=== PATIENT | male | born 1955 | race Hispanic/Latino ===

== ENCOUNTER 2019-08-14 08:42 | Day surgery (SDC) | payer OTHER ==
[2019-08-11 11:57] LABS: BASOPHILS % (AUTO) 0.8 % (0.0-5.0); EOSINOPHILS % (AUTO) 11.1 % (0.0-8.0); HEMATOCRIT 41.1 % (42-54); LYMPHOCYTES % (AUTO) 22.6 % (21.0-51.0); MEAN CORPUSCULAR HEMOGLOBIN 29.5 pg (27.0-33.0); MEAN CORPUSCULAR HGB CONC 31.6 g/dL (32.0-36.0); MEAN CORPUSCULAR VOLUME 93.2 fL (79-99); MONOCYTES % (AUTO) 10.2 % (3.0-13.0); NEUTROPHILS % (AUTO) 54.8 % (40.0-77.0); PLATELET COUNT (AUTO) 282 K/uL (130-400); RED BLOOD CELL COUNT(AUTO) 4.41 MIL/uL (4.50-6.20); RED CELL DISTRIBUTION WIDTH 12.3 % (11.0-15.5)
[2019-08-11 12:06] LABS: POTASSIUM 4.2 mmol/L (3.5-5.1)
[2019-08-11 12:12] VITALS: BP 141/82
[~2019-08-14] VITALS: Ht 167.6 cm; Wt 86.2 kg
[2019-08-14] VITALS (25 sets, daily range): BP systolic 117–147; BP diastolic 52–83
[~2019-08-14 08:42] MED LIST: CEFAZOLIN SODIUM 1 GM VIAL IVP SCH; OMEP20TA25 PO
[2019-08-14] MEDS ORDERED: LACTATED RINGERS 1000ML 1,000 ML IV ONE (09:44)
[2019-08-14] MEDS ORDERED: MIDAZOLAM HCL 1 MG/ML 2ML VIAL ONE ×2 (13:42→13:50)
[2019-08-14] MEDS ORDERED: LIDOCAINE PF 2% 5ML ABBOJECT ONE (13:43)
[2019-08-14] MEDS ORDERED: ROCURONIUM 10MG/1ML SYR 10 MG/ML ML ONE (13:43)
[2019-08-14] MEDS ORDERED: PROPOFOL 10 MG/ML 20ML VIAL IV ONE (13:43)
[2019-08-14] MEDS ORDERED: FENTANYL CITRATE PF 50 MCG/1 ML 5ML AMP IV ONE (13:43)
[2019-08-14] MEDS ORDERED: CEFAZOLIN SODIUM 1 GM VIAL ONE (13:54)
[2019-08-14] MEDS ORDERED: EPHEDRINE SULFATE 50 MG/ML AMPULE ONE (14:04)
[2019-08-14] MEDS ORDERED: PHENYLEPHRINE HCL 10 MG/ML 1ML VIAL IV ONE (14:23)
[2019-08-14] MEDS ORDERED: GLYCOPYRROLATE 1 MG/5 ML SYRINGE ONE (14:26)
[2019-08-14] MEDS ORDERED: DEXAMETHASONE SOD PHOSPHATE 10MG/ML 1ML VIAL ONE (14:26)
[2019-08-14] MEDS ORDERED: NEOSTIGMINE 5MG/5ML SYR IV ONE (14:26)
[2019-08-14] MEDS ORDERED: ONDANSETRON HCL 4 MG/2 ML VIAL ONE (14:27)
[2019-08-14] MEDS ORDERED: HYDR-4457 PO (15:45)
[2019-08-14] MEDS ORDERED: CEPH-578 PO (15:45)
[2019-08-14] MEDS ORDERED: MORPHINE SULFATE 2 MG/ML 1ML SYG ONE ×2 (16:02→16:40)
[2019-08-14] MEDS: FENTANYL CITRATE PF 50 MCG/1 ML 2ML VIAL ONE ×2 (16:16→16:19)
[2019-08-14] MEDS ORDERED: KETOROLAC TROMETHAMINE 30MG/ML ONE (17:02)
--- NOTE | 2019-08-14 17:30 | NUR ---
post received pt from PACU, S/p right shoulder open rotator cuff repair, dressing to site dry and intact, arm sling in place ice packs in place. neurovascular checks wnl. pt able to wiggle fingers to right hand . pt awake and alert. right arm elevated. patient states has pain level of 4. patient received medications in pacu, plan of care discuss with patient pts friend Mando Diamond.
--- NOTE | 2019-08-14 18:15 | NUR ---
dc dc instructions and rx x 2 given to pts friend Mando. instructed to f/u with dr. wallace on aug 18, photo copy of dr. wallace orders provided and reviewed with them, both verbalized understanding. instructed on new med regimen.
--- NOTE | 2019-08-14 18:20 | NUR ---
dc pt dc home via [place],no distress noted. pt accompanied by friend Mando. right shoulder dressing dry and intact with arm sling in place.
== END 2019-08-14 18:20 | disposition home or self-care (01) ==
LOC: DAH 08:42
PROVIDERS: ATTEND Orthopaedic Surgery
DX: M75.111 Incomplete rotator cuff tear or rupture of right shoulder, not specified as traumatic (principal); Z79.899 Other long term (current) drug therapy; Z98.890 Other specified postprocedural states; Z79.2 Long term (current) use of antibiotics; Z83.3 Family history of diabetes mellitus
CPT/HCPCS: 23412; 23415; 36415; 64415; 76942; 80048; 85025; A4215; A4221; A4222; A4223; A4565; A4600; A4649 ×2; A4663; A4930 ×2; A5120; A6204; C1713 ×2; J0690 ×2; J1100; J1885; J2001; J2250 ×2; J2370; J2405; J2704; J2710; J3010 ×2; J3490 ×2; J7120